=== PATIENT | female | born 1945 | race Caucasian/White ===

== ENCOUNTER 2018-04-28 09:09 | Outpatient (CLI) | payer OTHER | END 2018-04-28 09:12 | disposition home or self-care (01) | LOC: SONOGRAMA 09:09 | DX: E04.1 Nontoxic single thyroid nodule (principal) ==

== ENCOUNTER 2019-04-13 11:10 | Outpatient (CLI) | payer OTHER | END 2019-04-13 11:16 | disposition home or self-care (01) | LOC: MAMO-SONO 11:10 | DX: N64.4 Mastodynia (principal); Z12.31 Encounter for screening mammogram for malignant neoplasm of breast ==

== ENCOUNTER 2019-05-11 08:16 | Outpatient (CLI) | payer OTHER | END 2019-05-11 08:32 | disposition home or self-care (01) | LOC: TOM 08:16 | DX: K76.89 Other specified diseases of liver (principal); Q61.3 Polycystic kidney, unspecified ==

== ENCOUNTER 2021-03-20 08:53 | Outpatient (CLI) | payer OTHER | END 2021-03-20 08:55 | disposition home or self-care (01) | LOC: MAMO-SONO 08:53 | PROVIDERS: ATTEND Family Medicine | DX: Z12.31 Encounter for screening mammogram for malignant neoplasm of breast (principal); Z87.898 Personal history of other specified conditions; N64.4 Mastodynia ==

== ENCOUNTER 2022-06-11 13:01 | Inpatient (IN) | payer OTHER ==
[~2022-06-11] VITALS: Ht 152.4 cm; Wt 51.7 kg
[2022-06-11] MEDS ORDERED: ATORVASTATIN CA10 MG PO (13:54)
[2022-06-11] MEDS ORDERED: SYNTHROID100 MCG PO (13:54)
[2022-06-11] MEDS ORDERED: TENORMIN100 M1 PO (13:54)
[2022-06-11] MEDS ORDERED: VASOTEC20 M1 PO (13:55)
[2022-06-11] MEDS ORDERED: PEPCID AC20 MG PO (13:55)
[2022-06-11] MEDS ORDERED: ALPRAZOLAM XR1 MG PO (13:55)
[2022-06-11] MEDS ORDERED: AMLODIPINE-OLM1 EAC2 PO (13:56)
[2022-06-11] MEDS ORDERED: TRAMADOL HCL E100 M1 PO (13:56)
--- NOTE | 2022-06-11 14:03 | NUR ---
SE RECIBE FEMINA ALERTA Y ORIENTADA X3. VERBALIZA DRA MEDINA PARES HABLAR CON DR NANY LUCIO ([facility]) Y DR HERBERT BRIDGES ([place]) POR QUEMADURAS GRAVES. VERBALIZA WILLIAMS ESTADO EXPUESTA AL GLORY DE 10AM A 2PM POR PERDIDA DE CONOCIMIENTO EN PATIO DE [place] EN . YA HABIA SIDO ATENDIDA, SIN EMBARGO EL DOLOR Y QUEMASON SE COLE INTESIFICADO. SE MIDEN S/V Y SE UBICA EN SECCION K PARA PROCESO DE ADMISION.
--- NOTE | 2022-06-11 15:53 | NUR ---
PTE EVALUADO POR LA DRA PANTOJA QUIEN ORDENA EL [place]. MR Hines HAWKINS ORIENTA SOBRE EL TX ORDENADO, LO CUAL REFIERE ENTENDER, REALIZA PRUEBAS DE LABORATORIO Y ADMINISTRA MEDICAMENTOS JESIKA ORDEN MEDICA Y SIGUIENDO MEDIDAS ASEPTICAS.
[2022-08-24] MEDS ORDERED: SENOKOT-S TABL1 EACH PO (13:31)
[2022-08-24] MEDS ORDERED: LEVOFLOXACIN500 MG PO (13:31)
[2022-08-24] MEDS ORDERED: COZAAR50 MG PO (13:32)
[2022-08-24] MEDS ORDERED: ATORVASTATIN CA10 MG PO (13:33)
[2022-08-24] MEDS ORDERED: FAMOTIDINE20 MG PO (13:35)
[2022-08-24] MEDS ORDERED: GABAPENTIN100 MG PO (13:35)
[2022-08-24] MEDS ORDERED: INTESTINEX680 M1 PO (13:36)
[2022-08-24] MEDS ORDERED: PANTOPRAZOLE SO40 MG PO (13:36)
[2022-08-24] MEDS ORDERED: PROTEINEX-18 LI30 ML PO (13:38)
[2022-08-24] MEDS ORDERED: LEVOTHYROXINE150 MCG PO (13:39)
[2022-08-24] MEDS ORDERED: B Complex PO (13:40)
[2022-08-24] MEDS ORDERED: ALPRAZOLAM0.5 MG PO (13:40)
[2022-08-24] MEDS ORDERED: NeuRONTin 400MG CAPS PO (13:40)
[2022-08-24] MEDS ORDERED: TOPROL XL50 M1 PO (13:40)
== END 2022-08-24 15:18 | disposition home or self-care (01) | DRG 927 ==
LOC: ER 13:01 → MEDJ 16:59 → SEC-K 16:59 → MEDJ 17:16
PROVIDERS: Specialist; ADMIT Internal Medicine; ATTEND Internal Medicine
PROC: B24BYZZ Ultrasonography of Heart with Aorta using Other Contrast (ICD-10-PCS; 2022-06-12)
PROC: 02HV33Z Insertion of Infusion Device into Superior Vena Cava, Percutaneous Approach (ICD-10-PCS; 2022-06-12)
PROC: 0JBP0ZZ Excision of Left Lower Leg Subcutaneous Tissue and Fascia, Open Approach (ICD-10-PCS; 2022-06-14)
PROC: 0JBL0ZZ Excision of Right Upper Leg Subcutaneous Tissue and Fascia, Open Approach (ICD-10-PCS; 2022-06-14)
PROC: 0JBM0ZZ Excision of Left Upper Leg Subcutaneous Tissue and Fascia, Open Approach (ICD-10-PCS; 2022-06-14)
PROC: 0JBN0ZZ Excision of Right Lower Leg Subcutaneous Tissue and Fascia, Open Approach (ICD-10-PCS; 2022-06-14)
PROC: 0JBH0ZZ Excision of Left Lower Arm Subcutaneous Tissue and Fascia, Open Approach (ICD-10-PCS; 2022-06-14)
PROC: 0JBF0ZZ Excision of Left Upper Arm Subcutaneous Tissue and Fascia, Open Approach (ICD-10-PCS; 2022-06-14)
PROC: 0JB80ZZ Excision of Abdomen Subcutaneous Tissue and Fascia, Open Approach (ICD-10-PCS; 2022-06-14)
PROC: 30233N1 Transfusion of Nonautologous Red Blood Cells into Peripheral Vein, Percutaneous Approach (ICD-10-PCS; 2022-06-15)
PROC: 4A12X4Z Monitoring of Cardiac Electrical Activity, External Approach (ICD-10-PCS; 2022-06-15)
PROC: BW211ZZ Computerized Tomography (CT Scan) of Abdomen and Pelvis using Low Osmolar Contrast (ICD-10-PCS; 2022-06-18)
PROC: 0JBP0ZZ Excision of Left Lower Leg Subcutaneous Tissue and Fascia, Open Approach (ICD-10-PCS; 2022-06-20)
PROC: 0JBL0ZZ Excision of Right Upper Leg Subcutaneous Tissue and Fascia, Open Approach (ICD-10-PCS; 2022-06-20)
PROC: 0JBM0ZZ Excision of Left Upper Leg Subcutaneous Tissue and Fascia, Open Approach (ICD-10-PCS; 2022-06-20)
PROC: 0JBN0ZZ Excision of Right Lower Leg Subcutaneous Tissue and Fascia, Open Approach (ICD-10-PCS; 2022-06-20)
PROC: 0JB80ZZ Excision of Abdomen Subcutaneous Tissue and Fascia, Open Approach (ICD-10-PCS; 2022-06-20)
PROC: 0JBH0ZZ Excision of Left Lower Arm Subcutaneous Tissue and Fascia, Open Approach (ICD-10-PCS; 2022-06-20)
PROC: 0JBF0ZZ Excision of Left Upper Arm Subcutaneous Tissue and Fascia, Open Approach (ICD-10-PCS; 2022-06-20)
PROC: 0KBT0ZZ Excision of Left Lower Leg Muscle, Open Approach (ICD-10-PCS; 2022-06-26)
PROC: BQ3FZZZ Magnetic Resonance Imaging (MRI) of Left Lower Leg (ICD-10-PCS; 2022-06-26)
PROC: 0KBT0ZZ Excision of Left Lower Leg Muscle, Open Approach (ICD-10-PCS; 2022-06-28)
PROC: 0QDF0ZZ Extraction of Left Patella, Open Approach (ICD-10-PCS; 2022-06-28)
PROC: B24BYZZ Ultrasonography of Heart with Aorta using Other Contrast (ICD-10-PCS; 2022-06-28)
PROC: 02PYX3Z Removal of Infusion Device from Great Vessel, External Approach (ICD-10-PCS; 2022-07-01)
PROC: BW211ZZ Computerized Tomography (CT Scan) of Abdomen and Pelvis using Low Osmolar Contrast (ICD-10-PCS; 2022-07-02)
PROC: 0JBP0ZZ Excision of Left Lower Leg Subcutaneous Tissue and Fascia, Open Approach (ICD-10-PCS; 2022-07-03)
PROC: 0JBM0ZZ Excision of Left Upper Leg Subcutaneous Tissue and Fascia, Open Approach (ICD-10-PCS; 2022-07-03)
PROC: 0JBP0ZZ Excision of Left Lower Leg Subcutaneous Tissue and Fascia, Open Approach (ICD-10-PCS; 2022-07-10)
PROC: 0JBM0ZZ Excision of Left Upper Leg Subcutaneous Tissue and Fascia, Open Approach (ICD-10-PCS; 2022-07-10)
PROC: 0QBH0ZX Excision of Left Tibia, Open Approach, Diagnostic (ICD-10-PCS; 2022-07-24)
PROC: 0HRLXK3 Replacement of Left Lower Leg Skin with Nonautologous Tissue Substitute, Full Thickness, External Approach (ICD-10-PCS; principal; 2022-07-24 09:30)
PROC: 8E0ZXY6 Isolation (ICD-10-PCS; 2022-08-01)
PROC: 0JDM0ZZ Extraction of Left Upper Leg Subcutaneous Tissue and Fascia, Open Approach (ICD-10-PCS; 2022-08-07)
PROC: 02HV33Z Insertion of Infusion Device into Superior Vena Cava, Percutaneous Approach (ICD-10-PCS; 2022-08-07)
PROC: B020ZZZ Computerized Tomography (CT Scan) of Brain (ICD-10-PCS; 2022-08-22)
DX: T24.392A Burn of third degree of multiple sites of left lower limb, except ankle and foot, initial encounter (principal); T31.22 Burns involving 20-29% of body surface with 20-29% third degree burns; T24.391A Burn of third degree of multiple sites of right lower limb, except ankle and foot, initial encounter; T80.219A Unspecified infection due to central venous catheter, initial encounter; T22.392A Burn of third degree of multiple sites of left shoulder and upper limb, except wrist and hand, initial encounter; T21.32XA Burn of third degree of abdominal wall, initial encounter; I96 Gangrene, not elsewhere classified; Z68.1 Body mass index [BMI] 19.9 or less, adult; Z16.24 Resistance to multiple antibiotics; D62 Acute posthemorrhagic anemia; B37.89 Other sites of candidiasis; B49 Unspecified mycosis; N39.0 Urinary tract infection, site not specified; L97.826 Non-pressure chronic ulcer of other part of left lower leg with bone involvement without evidence of necrosis; L97.818 Non-pressure chronic ulcer of other part of right lower leg with other specified severity; L55.2 Sunburn of third degree; B95.7 Other staphylococcus as the cause of diseases classified elsewhere; L08.89 Other specified local infections of the skin and subcutaneous tissue; B96.5 Pseudomonas (aeruginosa) (mallei) (pseudomallei) as the cause of diseases classified elsewhere; B96.1 Klebsiella pneumoniae [K. pneumoniae] as the cause of diseases classified elsewhere; G89.29 Other chronic pain; Z86.73 Personal history of transient ischemic attack (TIA), and cerebral infarction without residual deficits; E03.8 Other specified hypothyroidism; I10 Essential (primary) hypertension
CPT/HCPCS: 73725

== ENCOUNTER 2022-09-04 06:01 | Emergency (ER) | payer OTHER ==
[~2022-09-04] VITALS: Ht 165.1 cm; Wt 52.6 kg
[~2022-09-04 06:01] MED LIST: ALPRAZOLAM XR1 MG PO; ALPRAZOLAM0.5 MG PO; AMLODIPINE-OLM1 EAC2 PO; ATORVASTATIN CA10 MG PO; B Complex PO; COZAAR50 MG PO; FAMOTIDINE20 MG PO; GABAPENTIN100 MG PO; INTESTINEX680 M1 PO; LEVOFLOXACIN500 MG PO; LEVOTHYROXINE150 MCG PO; NeuRONTin 400MG CAPS PO; PANTOPRAZOLE SO40 MG PO; PEPCID AC20 MG PO; PROTEINEX-18 LI30 ML PO; SENOKOT-S TABL1 EACH PO; SYNTHROID100 MCG PO; TENORMIN100 M1 PO; TOPROL XL50 M1 PO; TRAMADOL HCL E100 M1 PO; VASOTEC20 M1 PO
== END 2022-09-04 12:53 | disposition designated cancer center or children's hospital (05) ==
LOC: ER 06:01
DX: S72.141A Displaced intertrochanteric fracture of right femur, initial encounter for closed fracture (principal); W19.XXXA Unspecified fall, initial encounter; Y93.89 Activity, other specified; Y92.89 Other specified places as the place of occurrence of the external cause; D25.9 Leiomyoma of uterus, unspecified; Z91.018 Allergy to other foods